=== PATIENT | male | born 1955 | race African-American/Black ===

== ENCOUNTER 2016-03-15 15:09 | Inpatient (IN) | payer MEDICAID ==
[~2016-03-15] VITALS: Ht 167.6 cm; Wt 81.8 kg
[2016-03-15] VITALS (8 sets, daily range): BP systolic 81–136; BP diastolic 50–90; PULSE 66–87; RESP 16–20; TEMP 97.3–98.2; O2SAT 89–98
[~2016-03-15 15:09] MED LIST: CLON0.2T PO; DILT30 PO; KETO2%T TOP; LISI-363 PO
--- NOTE | 2016-03-15 15:36 | PD ---
HPI Chief Complaint: Seizure Time Seen by Provider: 15:30 Travel History International Travel<30 days: No Contact w/Intl Traveler<30days: No Traveled to known affect area: No History of Present Illness HPI 60-year-old male came to the emergency room with history of seizure and postictal spotted by the passerby. He was laying on the ground poorly responsive when EMS arrived. He was incontinent and tongue bite. Currently he continues to be postictal and confused. He was brought in boarded and collared. He looked intoxicated and said he had a bottle of wine today along with cocaine. [facility] Past Medical History Narrative Medical List of his past medical history is reviewed from the nursing note. Hypertension: Yes Social History Alcohol Use: No Tobacco Use: Yes (CIGARETTES, 1 PPD X 30 X YEARS) Substance Use: No Allergies-Medications (Allergen,Severity, Reaction): Coded Allergies: No Known Allergies (Unverified , 12/13/11) Comments No known drug allergies. Reported Meds & Prescriptions Reported Meds & Active Scripts Active Reported Aspirin 81 Mg Tabdr 81 Mg PO DAILY Norvasc (Amlodipine Besylate) 5 Mg Tab 5 Mg PO BID Narrative Medication List of his past medical history as reviewed from the nursing note. Review of Systems Except as stated in HPI: all other systems reviewed are Neg Physical Exam Narrative GENERAL: Confused, boarded and collared, moderate distress SKIN: Warm and dry. Abrasion on the scalp in the occipital area HEAD: Atraumatic. Normocephalic. EYES: Pupils equal and round. No scleral icterus. No injection or drainage. ENT: No nasal bleeding or discharge. Mucous membranes pink and moist. NECK: Trachea midline. No JVD. CARDIOVASCULAR: Regular rate and rhythm. No murmur appreciated. RESPIRATORY: No accessory muscle use. Clear to auscultation. Breath sounds equal bilaterally. GASTROINTESTINAL: Abdomen soft, non-tender, nondistended. Hepatic and splenic margins not palpable. MUSCULOSKELETAL: No obvious deformities. No clubbing. No cyanosis. No edema. NEUROLOGICAL: Awake and alert. No obvious cranial nerve deficits. Motor grossly within normal limits. Slurred speech. PSYCHIATRIC: Appropriate mood and affect; insight and judgment normal. Data Data Last Documented VS Vital Signs Date Time Temp Pulse Resp B/P Pulse Ox O2 Delivery O2 Flow Rate FiO2 03/15/16 15:55 86 18 116/70 93 Nasal Cannula 2 03/15/16 15:35 97.3 Orders Complete Blood Count With Diff (03/15/16 15:40) Basic Metabolic Panel (Bmp) (03/15/16 15:40) Alcohol (Ethanol) (03/15/16 15:40) Drug Screen, Random Urine (03/15/16 15:40) Ct Brain W/O Iv Contrast(Rout) (03/15/16 ) Blood Glucose (03/15/16 15:40) Ecg Monitoring (03/15/16 15:40) Iv Access Insert/Monitor (03/15/16 15:40) Oximetry (03/15/16 15:40) Sodium Chloride 0.9% Flush (Ns Flush) (03/15/16 15:45) Thiamine Inj (Thiamine Inj) (03/15/16 15:45) Tetanus/Diphtheria Tox Adult (Tetanus/Di (03/15/16 15:45) Bacitracin Oint (Baciguent Oint) (03/15/16 15:45) Acetaminophen (Tylenol) (03/15/16 15:45) Mri Brain W&W/O Contrast (03/15/16 ) Levetiracetam Inj (Keppra Inj) (03/15/16 16:45) Consult Neurosurgery (03/15/16 ) Admit Order (Ed Use Only) (03/15/16 16:48) Electrocardiogram (03/15/16 15:48) Labs Laboratory Tests Test 03/15/16 03/15/16 16:15 16:25 White Blood Count 7.4 TH/MM3 Red Blood Count 4.21 MIL/MM3 Hemoglobin 13.7 GM/DL Hematocrit 40.0 % Mean Corpuscular Volume 95.1 FL Mean Corpuscular Hemoglobin 32.7 PG Mean Corpuscular Hemoglobin 34.4 % Concent Red Cell Distribution Width 12.8 % Platelet Count 272 TH/MM3 Mean Platelet Volume 7.9 FL Neutrophils (%) (Auto) 81.0 % Lymphocytes (%) (Auto) 13.0 % Monocytes (%) (Auto) 5.0 % Eosinophils (%) (Auto) 0.6 % Basophils (%) (Auto) 0.4 % Neutrophils # (Auto) 6.0 TH/MM3 Lymphocytes # (Auto) 1.0 TH/MM3 Monocytes # (Auto) 0.4 TH/MM3 Eosinophils # (Auto) 0.0 TH/MM3 Basophils # (Auto) 0.0 TH/MM3 CBC Comment DIFF FINAL Differential Comment Sodium Level 139 MEQ/L Potassium Level 3.2 MEQ/L Chloride Level 103 MEQ/L Carbon Dioxide Level 20.4 MEQ/L Anion Gap 16 MEQ/L Blood Urea Nitrogen 14 MG/DL Creatinine 1.76 MG/DL Estimat Glomerular Filtration 48 ML/MIN Rate Random Glucose 107 MG/DL Calcium Level 8.7 MG/DL Ethyl Alcohol Level 23 MG/DL Urine Opiates Screen NEG Urine Barbiturates Screen NEG Urine Amphetamines Screen NEG Urine Benzodiazepines Screen NEG Urine Cocaine Screen POS Urine Cannabinoids Screen NEG MDM Medical Decision Making Medical Screen Exam Complete: Yes Emergency Medical Condition: Yes Medical Record Reviewed: Yes Interpretation(s) Twelve-lead EKG was reviewed by me. Normal sinus rhythm, left axis deviation, nonspecific ST-T wave changes. Heart rate of 85 bpm. Differential Diagnosis Intracranial bleed, intracranial mass, new onset seizure Narrative Course 4:46 PM I discussed the case with Dr. Cuevas regarding the CT scan abnormality. He will consult on the patient. He agreed with the 1 g of Keppra for seizure precaution. I've ordered an MRI with contrast for better definition of the mass. Awaiting for the hospitalist to call back for admission. Critical Care Narrative Aggregate critical care time was 30 minutes. Time to perform other separately billable procedures was not included in the critical care time. My time did not include minutes spent treating any other patients simultaneously or on activities that did not directly contribute to the patient's treatment. The services I provided to this patient were to treat and/or prevent clinically significant deterioration that could result in: Intracranial mass, new onset seizure I provided critical care services requiring my management, as noted below: Chart data review, documentation time, medication orders and management, vital sign assessments/reviewing monitor data, ordering and reviewing lab tests, ordering and interpreting/reviewing x-rays and diagnostic studies, care of the patient and discussion of the patient with the admitting physicians. Procedures EKG Prior to Arrival: No Physician Communication Physician Communication Dr. Cuevas Diagnosis Primary Impression: New onset seizure Additional Impression: Intracranial mass Admitting Information Admitting Physician Requests: Admit Erik Patterson MD Mar 15, 2016 15:36
[2016-03-15] MEDS ORDERED: AMLO5 PO (15:37)
[2016-03-15] MEDS ORDERED: ASPI1TAB69 PO (15:37)
[2016-03-15] MEDS ORDERED: ACETAMINOPHEN 500 MG CPLT PO ONE (15:45)
[2016-03-15] MEDS ORDERED: SODIUM CHLORIDE 0.9% FLUSH 5 ML FLUSH IVF PRN (15:45)
[2016-03-15] MEDS ORDERED: THIAMINE HCL 200 MG/2 ML VIAL IM ONE (15:45)
[2016-03-15] MEDS ORDERED: BACITRACIN TOP OINT 15 GM TUBE TOP ONE (15:45)
[2016-03-15] MEDS ORDERED: TETANUS/DIPHTHERIA TOXOID ADULT 0.5 ML VIAL IM ONE (15:45)
--- NOTE | 2016-03-15 16:28 | RADRPT ---
EXAM DATE/TIME: 03/15/2016 16:00 [facility] COMPARISON: No previous studies available for comparison. INDICATIONS : Trauma; fall, seizure activity. RADIATION DOSE: 56.35 CTDIvol (mGy) MEDICAL HISTORY : Hypertension. Drug abuse. SURGICAL HISTORY : None. ENCOUNTER: Initial ACUITY: 1 day PAIN SCALE: 0/10 LOCATION: cranial TECHNIQUE: Multiple contiguous axial images were obtained of the head. Using automated exposure control and adj ustment of the mA and/or kV according to patient size, radiation dose was kept as low as reasonably a chievable to obtain optimal diagnostic quality images. FINDINGS: CEREBRUM: There is a 1.8 cm high density mass identified in the left frontal lobe adjacent to the falx. This is seen best on series 2 image 16 through 19. The mass appears to be intra-axial and associated with ad jacent peritumoral edema within the white matter. Additional edema is identified within the white mat ter of the right frontal lobe. No evidence of midline shift or significant mass effect. The adjacent calvarium is unremarkable. The lateral ventricles are normal. POSTERIOR FOSSA: The cerebellum and brainstem are intact. The 4th ventricle is midline. The cerebellopontine angle i s unremarkable. EXTRACRANIAL: The visualized portion of the orbits is intact. There is complete opacification of the left maxillary sinus and mucoperiosteal thickening present within the ethmoid air cells. SKULL: The calvaria is intact. No evidence of skull fracture. CONCLUSION: This is an abnormal exam with a 1.8 cm high density mass identified within the left frontal lobe polly cent to the falx which appears to be intra-axial and associated with adjacent peritumoral edema. Mario mmend further evaluation with contrast-enhanced MRI of the brain when clinically able.. Analilia Delgado MD on March 15, 2016 at 16:22 Board Certified Radiologist. This report was verified electronically.
[2016-03-15 16:40] LABS: BASOPHIL % 0.4 % (0.0-2.0); EOSINOPHIL % 0.6 % (0.0-4.0); HEMO FLAGS DIFF FINAL; MEAN CELL VOLUME 95.1 FL (80.0-100.0); MEAN CORPUSCULAR HEMOGLOBIN 32.7 PG (27.0-34.0); MEAN CORPUSCULAR HGB CONC 34.4 % (32.0-36.0); PLATELET COUNT 272 TH/MM3 (150-450); RED BLOOD COUNT 4.21 MIL/MM3 (4.50-5.90); RED CELL DISTRIBUTION WIDTH 12.8 % (11.6-17.2); WHITE BLOOD COUNT 7.4 TH/MM3 (4.0-11.0)
[2016-03-15] MEDS ORDERED: levETIRAcetam INJ 1,000 MG in SODIUM CHLORIDE 0.9% INJ 100 ML IV ONE (16:45)
[2016-03-15 16:52] LABS: AMPHETAMINE, URINE NEG (NEG); BARBITURATES, URINE NEG (NEG); COCAINE, URINE POS (NEG)
[2016-03-15] MEDS ORDERED: SODIUM CHLORIDE 0.9% FLUSH 5 ML FLUSH FLUSH PRN (17:00)
[2016-03-15] MEDS ORDERED: MAGNESIUM HYDROXIDE SUSP 30 ML CUP PO PRN (17:00)
[2016-03-15] MEDS ORDERED: ACETAMINOPHEN 325 MG TAB PO PRN (17:00)
[2016-03-15] MEDS ORDERED: NALOXONE HCL 0.4 MG/ML AMP IV PRN (17:00)
[2016-03-15] MEDS ORDERED: BISACODYL 10 MG SUPP PR PRN (17:00)
[2016-03-15 17:01] LABS: BICARBONATE 20.4 MEQ/L (21.0-32.0); POTASSIUM 3.2 MEQ/L (3.5-5.1)
--- NOTE | 2016-03-15 17:15 | HHI.HP ---
[facility] Admission Diagnosis new onset seizure, cocaine abuse, intracranial mass Diagnoses: Chief Complaint: Seizure Travel History International Travel<30 Days: No Contact w/Intl Traveler <30 Da: No Traveled to Known Affected Are: No History of Present Illness Patient is a 60-year-old who came in to the hospital spotted by a passerby post ictal following a seizure. As per report, he was laying on the ground unresponsive when EMS arrived. He was incontinent and with tongue bite. In the ED he is post ictal and confused. He was given Keppra 1000mg. Patient seen. States he is doing a lot better. Alert and oriented 2-3. States that he's been drinking alcohol today and smoking crack. As per patient, he smoked a lot of crack and he was walking for 3 miles, and ended up at Hospital. CT imaging showed this an abnormal exam with a 1.8 cm high density mass identified within the left frontal lobe adjacent to the falx which appears to be intra-axial and associated with adjacent peritumoral edema. Recommend further evaluation with contrast enhanced MRI of the brain when clinically able. Neurosurgery has been consulted for input. Review of labs CBC unremarkable. BMP low potassium at 3.2, iron gap 16, carbon dioxide 20.4, elevated creatinine 1.76, EGFR 48, 107 random glucose. U tox positive for cocaine, ethyl alcohol 23. Discuss plan with patient and . states that this is a wakeup call for the who has been using crack and drinking alcohol. Results of the imaging studies have been explained and discussed. Patient denies pain and discomfort. Denies SOB/ dyspnea. Denies chestpain, palpitations, headaches, dizziness. Denies fevers, chills, n/v/d. Denies change in vision or focal weakness. Review of Systems Other Negative except for what is noted on history of present illness. Past Family Social History Past Medical History HTN Past Surgical History Hair transplant Reported Medications Norvasc ASA Allergies: Coded Allergies: No Known Allergies (Unverified , 12/13/11) Active Ordered Medications Current Medications Medications (Trade) Dose Ordered Sig/Aleta Route Start Time Stop Time Status Last Admin IV Flush 2 ml 2 ml UNSCH PRN IVF 03/15/16 15:45 (NS 1000 ml Inj) 1,000 ml @ 100 mls/hr Q10H IV 03/15/16 16:54 UNV (NS Flush) 2 ml UNSCH PRN FLUSH 03/15/16 17:00 UNV (NS Flush) 2 ml BID FLUSH 03/15/16 21:00 UNV (Tylenol) 650 mg Q4H PRN PO 03/15/16 17:00 UNV (Zofran Inj) 4 mg Q6H PRN IVP 03/15/16 17:00 UNV (Dulcolax Supp) 10 mg DAILY PRN NV 03/15/16 17:00 UNV (Milk Of Magnesia Liq) 30 ml Q12H PRN PO 03/15/16 17:00 UNV (Narcan Inj) 0.4 mg UNSCH PRN IV 03/15/16 17:00 UNV Family History Family history of hypertension Social History . Lives with . Alcohol use almost every day wine and beer " alot" Current smoker 1 pack per day Illicit drug use crack - states he smokes "a lot" almost every day Physical Exam Vital Signs Vital Signs Date Time Temp Pulse Resp B/P Pulse Ox O2 Delivery O2 Flow Rate FiO2 03/15/16 15:55 86 18 116/70 93 Nasal Cannula 2 03/15/16 15:45 89 Room Air 03/15/16 15:35 84 18 89 Room Air 03/15/16 15:35 97.3 83 18 81/50 93 Nasal Cannula 2 03/15/16 15:28 82 18 87/53 89 Physical Exam GENERAL: This is a well-nourished, well-developed patient, in no apparent distress. SKIN: No rashes, ecchymoses or lesions. Cool and dry. HEAD: Atraumatic. Normocephalic. No temporal or scalp tenderness. EYES: Pupils equal round and reactive. Extraocular motions intact. No scleral icterus. No injection or drainage. ENT: Nose without bleeding. Throat without erythema. Uvula midline. Tongue with bite suki. Airway patent. NECK: Trachea midline. No JVD or lymphadenopathy. Supple, nontender, no meningeal signs. CARDIOVASCULAR: Regular rate and rhythm without murmurs, gallops, or rubs. RESPIRATORY: Clear to auscultation. Breath sounds equal bilaterally. No wheezes , rales, or rhonchi. GASTROINTESTINAL: Abdomen soft, non-tender, nondistended. No hepato-splenomegaly , or palpable masses. No guarding. MUSCULOSKELETAL: Extremities without clubbing, cyanosis, or edema. No joint tenderness, effusion, or edema noted. NEUROLOGICAL: Awake and alert. Oriented x2-3. Cranial nerves II through XII intact. Motor and sensory grossly within normal limits. Five out of 5 muscle strength in all muscle groups. Normal speech. Laboratory Laboratory Tests Test 03/15/16 03/15/16 16:15 16:25 White Blood Count 7.4 Red Blood Count 4.21 Hemoglobin 13.7 Hematocrit 40.0 Mean Corpuscular Volume 95.1 Mean Corpuscular Hemoglobin 32.7 Mean Corpuscular Hemoglobin 34.4 Concent Red Cell Distribution Width 12.8 Platelet Count 272 Mean Platelet Volume 7.9 Neutrophils (%) (Auto) 81.0 Lymphocytes (%) (Auto) 13.0 Monocytes (%) (Auto) 5.0 Eosinophils (%) (Auto) 0.6 Basophils (%) (Auto) 0.4 Neutrophils # (Auto) 6.0 Lymphocytes # (Auto) 1.0 Monocytes # (Auto) 0.4 Eosinophils # (Auto) 0.0 Basophils # (Auto) 0.0 CBC Comment DIFF FINAL Differential Comment Sodium Level 139 Potassium Level 3.2 Chloride Level 103 Carbon Dioxide Level 20.4 Anion Gap 16 Blood Urea Nitrogen 14 Creatinine 1.76 Estimat Glomerular Filtration 48 Rate Random Glucose 107 Calcium Level 8.7 Ethyl Alcohol Level 23 Urine Opiates Screen NEG Urine Barbiturates Screen NEG Urine Amphetamines Screen NEG Urine Benzodiazepines Screen NEG Urine Cocaine Screen POS Urine Cannabinoids Screen NEG Result Diagram: 03/15/16 1615 03/15/16 1615 Assessment and Plan Problem List: (1) Intracranial mass ICD Code: R90.0 Status: Acute (2) New onset seizure ICD Code: R56.9 Status: Acute (3) HTN (hypertension) ICD Code: I10 Status: Chronic Assessment and Plan Patient is a 60-year-old who came in to the hospital spotted by a passerby post- ictal following a seizure. As per report, he was laying on the ground unresponsive when EMS arrived. He was incontinent and with tongue bite. Admitted inpatient for further evaluation. Seizure, new onset - Keppra was given 1000 mg in the ED. - Start Keppra 500 mg IV twice a day. Will switch to PO likely tomorrow 2016. - Ativan when necessary - Neuro checks every 4 hours - Seizure precaution Left Frontal mass - Decadron 4 mg every 6 hours - Neurosurgery consulted. Discussed with Dr. Cuevas. - Neurology consulted due to seizure activity. - MRI brain ordered. Discussed with Dr. Cuevas regarding CT Chest/Abd/pelvis. We will hold on CT studies due to [place]. Acute kidney injury - possibly prerenal secondary secondary to EtOH use, and crack cocaine - Creatinine 1.76. We do not have a baseline. - IV fluid hydration - Monitor BMP - Avoid nephrotoxins HTN - hold off on home medication Norvasc, Patient's BP on the lower side at this time. - Monitor BP trend. Will keep BP < 160/90. - If necessary, we will start Amlodipine 5mg Qday. Tobacco use - counseled EtOH - counseled. CIWA protocol Illicit drug use crack cocaine - counseled Full code. DVT prop SCDs GI prop pantoprazole Written by Narcisa Jordan, acting as scribe for Dr. Galeas on 03/15/16 at 17:20. The documentation accurately reflects the work performed [id number] by me on at 17:20. Code Status Full Code Discussed Condition With Patient, , nursing, Dr. Cuevas and ED attending Physician Certification 2 Midnight Certification Type: Admission for Inpatient Services Order for Inpatient Services The services are ordered in accordance with Medicare regulations or non- Medicare payer requirements, as applicable. In the case of services not specified as inpatient-only, they are appropriately provided as inpatient services in accordance with the 2-midnight benchmark. Estimated LOS (days): 2 days is the estimated time the patient will need to remain in the hospital, assuming treatment plan goals are met and no additional complications. Post-Hospital Plan: Not yet determined Narcisa Sheridan Mar 15, 2016 17:15 Coy Galeas DO Mar 15, 2016 23:19
--- NOTE | 2016-03-15 17:29 | PD.CONS ---
(Abdias Cuevas MD) HPI Consult Requested By Primary Care Physician Unknown (Abdias Cuevas MD) Service [facility] History of Present Illness Mr. Stock is a 60-year-old male who was taken to [facility] via EMS after a witnessed seizures. He had positive incontinent and with tongue biting according to report. He is post-ictally confused. He is also reported to be intoxicated, abusing etoh and smoking crack. A CT Brain was obtained which showed a 1.8 cm high density mass identified within the left frontal lobe adjacent to the falx. A neurosurgical evaluation was requested for evaluation of brain mass. (Sharmila Al) Review of Systems ROS not possible due to intoxication/sedation ROS Limitations: Intoxication, Altered Mental Status (Abdias Cuevas MD) Past Family Social History Allergies: Coded Allergies: No Known Allergies (Unverified , 12/13/11) Past Medical History Hypertension Past Surgical History no previous major surgery reported Reported Medications reviewed per EMR Family History Family history of hypertension Social History etoh abuse with daily beers and wine 1 pack per day tobacco reports to smoke crack (Sharmila Al) Physical Exam Vital Signs Vital Signs Date Time Temp Pulse Resp B/P Pulse Ox O2 Delivery O2 Flow Rate FiO2 03/15/16 15:55 86 18 116/70 93 Nasal Cannula 2 03/15/16 15:45 89 Room Air 03/15/16 15:35 84 18 89 Room Air 03/15/16 15:35 97.3 83 18 81/50 93 Nasal Cannula 2 03/15/16 15:28 82 18 87/53 89 Physical Exam The patient very lethargic but arousable. Appears intoxicated. Oriented to self and to place. Cranial nerve examination demonstrates the pupils to be equal, round, and reactive to light. Extra-ocular movements are intact with normal convergence. Facial motor function appears normal and symmetrical. Face sensation, hearing, visual gaming, and olfaction can not be assessed properly due to the patients condition. The patient has an intact corneal reflex and a gag reflex. Sternocleidomastoid and trapezius have normal and symmetrical strength. Other cranial nerves are intact. Neck is soft and supple. Cervical spine has a normal range of motion of the cervical spine without pain. There is no tenderness to palpation to the spinous processes or paraspinal muscles. Muscle testing reveals normal bulk and tone overall without rigidity, spasticity , fasciculations, or atrophy. Muscle strength is 5/5 in all muscle groups of both upper and lower extremities. Deep tendon reflexes are 1+ and symmetrical in the biceps, triceps, and brachioradialis, bilaterally, in the upper extremities. In the lower extremities , the patellar and Achilles are 1+, bilaterally. There is a bilateral plantar flexion response. Hoffmanns sign is negative. There is no clonus or other abnormal reflexes noted. Cerebellar examination is limited due to the patient condition, but no obvious deficits are noted. Laboratory Laboratory Tests Test 03/15/16 03/15/16 16:15 16:25 White Blood Count 7.4 Red Blood Count 4.21 Hemoglobin 13.7 Hematocrit 40.0 Mean Corpuscular Volume 95.1 Mean Corpuscular Hemoglobin 32.7 Mean Corpuscular Hemoglobin 34.4 Concent Red Cell Distribution Width 12.8 Platelet Count 272 Mean Platelet Volume 7.9 Neutrophils (%) (Auto) 81.0 Lymphocytes (%) (Auto) 13.0 Monocytes (%) (Auto) 5.0 Eosinophils (%) (Auto) 0.6 Basophils (%) (Auto) 0.4 Neutrophils # (Auto) 6.0 Lymphocytes # (Auto) 1.0 Monocytes # (Auto) 0.4 Eosinophils # (Auto) 0.0 Basophils # (Auto) 0.0 CBC Comment DIFF FINAL Differential Comment Sodium Level 139 Potassium Level 3.2 Chloride Level 103 Carbon Dioxide Level 20.4 Anion Gap 16 Blood Urea Nitrogen 14 Creatinine 1.76 Estimat Glomerular Filtration 48 Rate Random Glucose 107 Calcium Level 8.7 Ethyl Alcohol Level 23 Urine Opiates Screen NEG Urine Barbiturates Screen NEG Urine Amphetamines Screen NEG Urine Benzodiazepines Screen NEG Urine Cocaine Screen POS Urine Cannabinoids Screen NEG (Abdias Cuevas MD) Result Diagram: 03/15/16 1615 03/15/16 1615 Imaging Last Impressions Head CT 03/15/16 0000 Signed Impressions: Service Date/Time: Tuesday, March 15, 2016 16:00 - CONCLUSION: This is an abnormal exam with a 1.8 cm high density mass identified within the left frontal lobe adjacent to the falx which appears to be intra-axial and associated with adjacent peritumoral edema. Recommend further evaluation with contrast- enhanced MRI of the brain when clinically able.. Analilia Delgado MD (Abdias Cuevas MD) Attending Statement Neuro. I have reviewed his clinical and radiological findings. Start neuro checks in a serial fashion. Recommend MRI of the brain to rule out the possible meningioma Respiratory. Aggressive pulmonary toilette, nasotracheal suction, and breathing treatments with nebulizers. PT and OT evaluation Nutrition. NPO Alcohol abuse. Unable to genetic counsellor at this time. Thiamine, folic acid, multivitamins. Benzodiazepines as needed Renal. Severe renal insufficiency. IV hydration. Monitor closely urine output , BUN and creatinine Endocrine. Monitor serial Acu checks and SSI as needed in detail ID monitor for signs of infection Protonix for stress ulcer prophylaxis Ralph hosfadi and SCD's for DVT prophylaxis (Abdias Cuevas MD) Abdias Cuevas MD Mar 15, 2016 17:29 Sharmila Al Mar 16, 2016 17:14
[2016-03-15] MEDS ORDERED: GADODIAMIDE PF 287 MG/ML 20 ML VIAL (for RAD MRI) IV ONE (17:43)
[2016-03-15] MEDS ORDERED: LORazepam 2 MG TAB PO PRN (17:45)
[2016-03-15] MEDS ORDERED: LORazepam 2 MG/ML VIAL IV PUSH PRN ×5 (17:45)
[2016-03-15] MEDS ORDERED: LORazepam 1 MG TAB PO PRN (17:45)
[2016-03-15] MEDS ORDERED: FLUMAZENIL 1 MG/10 ML VIAL IV PUSH PRN (17:45)
[2016-03-15] MEDS ORDERED: ONDANSETRON HCL 4 MG/2 ML VIAL IVP PRN (18:00)
--- NOTE | 2016-03-15 18:18 | RADRPT ---
EXAM DATE/TIME: 03/15/2016 17:32 [facility] COMPARISON: CT BRAIN W/O CONTRAST, March 15, 2016, 16:00. INDICATIONS : Seizures. Abnormal CT study of the brain demonstrating a left frontal mass and edema. CONTRAST: 16 cc Omniscan (gadodiamide) IV MEDICAL HISTORY : Hypertension. SURGICAL HISTORY : Hand. ENCOUNTER: Initial ACUITY: 1 day PAIN SCORE: 0/10 LOCATION: head. TECHNIQUE: Multiplanar, multisequence MRI of the brain was performed both prior to and following the administrat ion of paramagnetic contrast. FINDINGS: CEREBRUM: The ventricles are normal for age. There is a 1.8 x 1.8 x 2.2 cm mass along the anterior upper left frontal lobe which enhances intensely and homogeneously and is associated with the adjacent meninges. The mass appears extra axial with mass effect on the frontal lobe and surrounding edema extending in the white matter. No evidence of midline shift, hemorrhage or acute infarction. No extraaxial fluid collections are seen. The pituitary gland and suprasellar cistern are normal in configuration. WHITE MATTER: On the flair weighted image there is extensive increased signal in the periventricular white matter a nd centrum semiovale characteristic of chronic small vessel ischemic change. POSTERIOR FOSSA: The cerebellum and brainstem are intact. The 4th ventricle is midline. The cerebellopontine angle is unremarkable. The cerebellar tonsils are normal in position. DIFFUSION IMAGING: No focal areas of restricted diffusion are seen. No evidence of acute infarction. EXTRACRANIAL: The visualized portions of the orbits are unremarkable. The left maxillary sinus is completely opacif ied. There is mucosal thickening in the right maxillary sinus, ethmoidal air cells and sphenoid sinus . There is mild mucosal thickening in the frontal sinuses. POST-CONTRAST: No abnormal areas of parenchymal or dural enhancement. No evidence of blood-brain barrier breakdown. CONCLUSION: 1. Left frontal lobe mass which appears extra axial with mass effect on the frontal lobe with surroun ding edema. This is most characteristic of a meningioma. 2. Atrophy and chronic small vessel ischemic change. 3. Sinusitis. Benjamin Alston MD on March 15, 2016 at 18:09 Board Certified Radiologist. This report was verified electronically.
[2016-03-15] MEDS: SODIUM CHLOR 0.9% 1000 ML INJ 1,000 ML IV SCH (20:56)
[2016-03-15] MEDS: SODIUM CHLORIDE 0.9% FLUSH 5 ML FLUSH FLUSH SCH (20:56)
[2016-03-15] MEDS: DEXAMETHASONE SOD PHOS 4 MG/ML VIAL IV PUSH SCH ×2 (20:56→23:59)
[2016-03-15] MEDS: levETIRAcetam INJ 500 MG in SODIUM CHLORIDE 0.9% INJ 100 ML IV SCH (22:58)
[2016-03-16 00:02] VITALS: BP 140/82; PULSE 65; RESP 20; TEMP 98.2; O2SAT 98
[2016-03-16 04:44] VITALS: BP 131/84; PULSE 88; RESP 22; TEMP 98.1; O2SAT 98
[2016-03-16] MEDS: SODIUM CHLOR 0.9% 1000 ML INJ 1,000 ML IV SCH ×3 (04:45→23:48)
[2016-03-16] MEDS: DEXAMETHASONE SOD PHOS 4 MG/ML VIAL IV PUSH SCH ×4 (06:14→23:48)
[2016-03-16 07:18] LABS: BASOPHIL % 0.1 % (0.0-2.0); HEMO FLAGS DIFF FINAL; LYMPH % 11.2 % (9.0-44.0); LYMPHOCYTE # 0.9 TH/MM3 (1.0-4.8); MEAN CELL VOLUME 93.8 FL (80.0-100.0); MEAN CORPUSCULAR HEMOGLOBIN 32.6 PG (27.0-34.0); MEAN CORPUSCULAR HGB CONC 34.7 % (32.0-36.0); MONO % 1.7 % (0.0-8.0); PLATELET COUNT 256 TH/MM3 (150-450); RED BLOOD COUNT 4.37 MIL/MM3 (4.50-5.90); RED CELL DISTRIBUTION WIDTH 12.7 % (11.6-17.2)
[2016-03-16 07:39] LABS: BICARBONATE 27.2 MEQ/L (21.0-32.0); POTASSIUM 3.2 MEQ/L (3.5-5.1)
[2016-03-16 07:50] VITALS: BP 135/94; PULSE 76; RESP 18; TEMP 98; O2SAT 97
[2016-03-16] MEDS: SODIUM CHLORIDE 0.9% FLUSH 5 ML FLUSH FLUSH SCH ×2 (08:26→21:10)
[2016-03-16] MEDS: PANTOPRAZOLE SOD 40 MG DELAYED RELEASE TAB PO SCH (08:26)
[2016-03-16] MEDS: FOLIC ACID 1 MG TAB PO SCH (08:26)
[2016-03-16] MEDS: levETIRAcetam INJ 500 MG in SODIUM CHLORIDE 0.9% INJ 100 ML IV SCH (09:51)
[2016-03-16 11:28] VITALS: BP 134/82; PULSE 78; RESP 19; TEMP 98.2; O2SAT 96
--- NOTE | 2016-03-16 14:13 | EKG ---
Date Performed: 03/15/2016 Time Performed: 15:48:35 PTAGE: 60 years EKG: Sinus rhythm LEFT VENTRICULAR HYPERTROPHY AND ST-T CHANGE ABNORMAL ECG NO PREVIOUS TRACING DOCTOR: Brayan Rae Interpretating Date/Time 03/16/2016 14:05:07
--- NOTE | 2016-03-16 16:41 | MB ---
cc: ROCHELLE AGUIAR M.D. DATE OF CONSULTATION: 03/16/2016 REASON FOR CONSULTATION: New onset seizure. HISTORY OF PRESENT ILLNESS: The patient is a 60-year-old with history of apparent new onset seizures. The patient does not remember about it. He remembers walking and the next thing he remembers is being in the ambulance. Apparently a passerby found him unresponsive or may have noticed a seizure. He was post ictal. He was incontinent and also bit his tongue. He was given Keppra 1 gram which was also combined with some lorazepam. The MRI and CT brain shows what appears to be a left frontal meningioma with some mass effect. I did review the studies. The patient has been using crack cocaine and drinking alcohol. He admits to a history of some apparent blood pressure but he is not taking care of himself. NEUROLOGICAL EXAMINATION: The neurological exam was essentially benign. He was alert pleasant, oriented. At the time of my visit about 45 minutes ago he was completely oriented and appropriate. His reflexes were trace at the elbows, absent at the knees and ankles and plantar responses were flexor. LABORATORY DATA: CBC is essentially normal. Sodium 139, potassium 3.2, BUN 14, creatinine 1.76, glucose 107, calcium 8.7. Urine cocaine screen positive. Alcohol level 23. ASSESSMENT 1. New onset seizures. Left frontal meningioma with some mass effect. 2. Drug abuse. The patient has been seen by neurosurgery to direct the treatment of the meningioma which is probably excision, and I have discussed this briefly with the patient and I believe his at bedside. He was counseled about drug abuse. I will follow the neurological course. Thank you for asking us to assist in his care. Rochelle Aguiar MD [facility] /2:46 PM /4:35 PM
--- NOTE | 2016-03-16 17:15 | HHI.PR ---
Subjective Remarks Follow up for new onset seizure, alcohol/polysubstance abuse, frontal lobe meningioma. Mr. Stock is doing much better today. at bedside. No CP, SOB, fever, chills. He does report slight dizziness on moving head too fast. Objective Vitals Vital Signs Date Time Temp Pulse Resp B/P Pulse Ox O2 Delivery O2 Flow Rate FiO2 03/16/16 15:55 03/16/16 11:28 98.2 78 19 134/82 96 03/16/16 07:50 98.0 76 18 135/94 97 03/16/16 04:44 98.1 88 22 131/84 98 03/16/16 00:02 98.2 65 20 140/82 98 03/15/16 22:46 98.2 66 20 132/76 98 03/15/16 21:00 80 16 130/75 96 Nasal Cannula 03/15/16 18:34 96 21 03/15/16 18:16 87 18 136/90 95 Nasal Cannula 2 I/O 03/15/16 03/15/16 03/15/16 03/16/16 03/16/16 03/16/16 07:00 15:00 23:00 07:00 15:00 23:00 Intake Total 1002 ml Output Total 200 ml Balance 802 ml Intake IV Total 1002 ml Output Urine Total 200 ml Result Diagram: 03/16/16 0636 03/16/16 0636 Imaging Last Impressions Head CT 03/15/16 0000 Signed Impressions: Service Date/Time: Tuesday, March 15, 2016 16:00 - CONCLUSION: This is an abnormal exam with a 1.8 cm high density mass identified within the left frontal lobe adjacent to the falx which appears to be intra-axial and associated with adjacent peritumoral edema. Recommend further evaluation with contrast- enhanced MRI of the brain when clinically able.. Analilia Delgado MD Brain MRI 03/15/16 0000 Signed Impressions: Service Date/Time: Tuesday, March 15, 2016 17:32 - CONCLUSION: 1. Left frontal lobe mass which appears extra axial with mass effect on the frontal lobe with surrounding edema. This is most characteristic of a meningioma. 2. Atrophy and chronic small vessel ischemic change. 3. Sinusitis. Benjamin Alston MD Objective Remarks GENERAL: AOX3, NAD. SKIN: Warm and dry. HEAD: Normocephalic. EYES: No scleral icterus. No injection or drainage. NECK: Supple, trachea midline. No JVD or lymphadenopathy. CARDIOVASCULAR: Regular rate and rhythm without murmurs, gallops, or rubs. RESPIRATORY: Breath sounds equal bilaterally. No accessory muscle use. GASTROINTESTINAL: Abdomen soft, non-tender, nondistended. MUSCULOSKELETAL: No cyanosis, or edema. BACK: Nontender without obvious deformity. No CVA tenderness. Procedures None. A/P Problem List: (1) Intracranial mass ICD Code: R90.0 Status: Acute (2) New onset seizure ICD Code: R56.9 Status: Acute (3) HTN (hypertension) ICD Code: I10 Status: Chronic Assessment and Plan Patient is a 60-year-old who came in to the hospital spotted by a passerby post- ictal following a seizure. As per report, he was laying on the ground unresponsive when EMS arrived. He was incontinent and with tongue bite. Admitted inpatient for further evaluation. Seizure, new onset - Keppra was given 1000 mg in the ED. - Keppra 500 mg IV twice a day. Will switch to PO today. - Ativan when necessary - Neuro checks every 4 hours - Seizure precaution Left Frontal mass - Decadron 4 mg every 6 hours - Neurosurgery and neurology following. - Neurology consulted due to seizure activity. - MRI confirms mass with surrounding edema. This is likely meningioma. Acute kidney injury - possibly prerenal secondary secondary to EtOH use, and crack cocaine - Creatinine 1.76 ==> 1.32 - IV fluid hydration - Monitor BMP - Avoid nephrotoxins HTN - hold off on home medication Norvasc. BP 134/82 - Monitor BP trend. Will keep BP < 160/90. - If necessary, we will start Amlodipine 5mg Qday. Tobacco use EtOH - [facility] protocol Illicit drug use crack cocaine - Counselled on 03/15/2016. Full code. SCDs. Coy Galeas DO Mar 16, 2016 17:15
--- NOTE | 2016-03-16 17:17 | HHI.NSPN ---
(Sharmila Al) Note Status Status: Progress Note (Sharmila Al) Interval History Interval History 03/16: more alert, no further seizures. no history of brain tumors. MRI Brain completed consistent for meningioma (Sharmila Al) Labs, Micro, & Vital Signs Results Date Time Temp Pulse Resp B/P Pulse Ox O2 Delivery O2 Flow Rate FiO2 03/16/16 15:55 03/16/16 11:28 98.2 78 19 134/82 96 03/16/16 07:50 98.0 76 18 135/94 97 03/16/16 04:44 98.1 88 22 131/84 98 03/16/16 00:02 98.2 65 20 140/82 98 03/15/16 22:46 98.2 66 20 132/76 98 03/15/16 21:00 80 16 130/75 96 Nasal Cannula 03/15/16 18:34 96 21 03/15/16 18:16 87 18 136/90 95 Nasal Cannula 2 Constitutional Vital Signs Date Time Temp Pulse Resp B/P Pulse Ox O2 Delivery O2 Flow Rate FiO2 03/16/16 15:55 03/16/16 11:28 98.2 78 19 134/82 96 03/16/16 07:50 98.0 76 18 135/94 97 03/16/16 04:44 98.1 88 22 131/84 98 03/16/16 00:02 98.2 65 20 140/82 98 03/15/16 22:46 98.2 66 20 132/76 98 03/15/16 21:00 80 16 130/75 96 Nasal Cannula 03/15/16 18:34 96 21 03/15/16 18:16 87 18 136/90 95 Nasal Cannula 2 (Sharmila Al) Medical Decision Making MDM Remarks 60 year old male with meningioma new onset seizures (Sharmila Al) Plan Plan Remarks MRI Brain reviewed, cont nonsurgical management, and recommend monitoring of meningioma for now dw patient and at bedside, all questions answered he is neurosurgically clear for discharge cont antiepileptics and mgt of seizures per neurology will sign off, call prn (Sharmila Al) Attending Statement The exam, history, and the medical decision-making described in the above note were completed with the assistance of the mid-level provider. I reviewed and agree with the findings presented. I attest that I had a [id number] encounter with the patient on the same day, and personally performed and documented my assessment and findings in the medical record. (Abdias Cuevas MD) Sharmila Al Mar 16, 2016 17:17 Abdias Cuevas MD Mar 16, 2016 19:53
[2016-03-16 21:06] VITALS: BP 155/84; PULSE 73; RESP 21; TEMP 98.2; O2SAT 97
[2016-03-16] MEDS: levETIRAcetam 500 MG TAB PO SCH (21:10)
[2016-03-17 04:41] VITALS: BP 142/87; PULSE 87; RESP 21; TEMP 98.7; O2SAT 98
[2016-03-17] MEDS: DEXAMETHASONE SOD PHOS 4 MG/ML VIAL IV PUSH SCH (05:42)
[2016-03-17 07:31] VITALS: BP 147/101; PULSE 66; RESP 18; TEMP 97.9; O2SAT 98
[2016-03-17] MEDS: FOLIC ACID 1 MG TAB PO SCH (08:24)
[2016-03-17] MEDS: levETIRAcetam 500 MG TAB PO SCH (08:24)
[2016-03-17] MEDS: SODIUM CHLORIDE 0.9% FLUSH 5 ML FLUSH FLUSH SCH (08:24)
[2016-03-17] MEDS: PANTOPRAZOLE SOD 40 MG DELAYED RELEASE TAB PO SCH (08:24)
--- NOTE | 2016-03-17 09:21 | MG ---
cc: JO TOPETE M.D. Lab No: [id number] Date: 03/16/2016 Age: 60 Sex: M Race: DATE OF 1955 AGE [age] years old. EEG Number [id number]. REFERRING PHYSICIAN MD Cosme NOTE Awake/drowsy/asleep study. No hyperventilation due to a mass in the brain with edema, only photic stimulation. MRI shows left frontal mass, appears to be extra-axial with mass effect on the frontal lobe, surrounding edema, meningioma likely. Admitted to the hospital with witnessed seizure, postictal poorly responsive. Drank one bottle of wine and used cocaine prior to being admitted to the hospital per history. He does have a history of crack cocaine use, hypertension, alcohol and tobacco use. MEDICATIONS 1. Folic acid. 2. Protonix. 3. Keppra. DESCRIPTION OF RECORD The patient has quite a bit of eye movement but has some faster frequency waves but seems to have overall normal alpha rhythm of 8 Hz. There is a lot of eye movement artifact, fairly symmetrical otherwise. I do not appreciate any significant attenuation over the left hemisphere compared to the right. Photic stimulation did elicit a driving response. IMPRESSION Basically unremarkable EEG, normal, without any epileptiform features and no significant slowing is seen over the hemisphere with the meningioma, left hemisphere. Clinical correlation. MD KEV Wright/LIBIA /8:55 AM /9:13 AM
--- NOTE | 2016-03-17 09:26 | HHI.PR ---
Subjective Remarks Follow up for alcoholism, meningioma, seizure activity. Mr. Stock is doing well. Denies any acute concerns. Denies any CP, SOB, fever, chills or any further seizure activity. Objective Vitals Vital Signs Date Time Temp Pulse Resp B/P Pulse Ox O2 Delivery O2 Flow Rate FiO2 03/17/16 07:31 97.9 66 18 147/101 98 03/17/16 05:18 21 03/17/16 04:41 98.7 87 21 142/87 98 03/16/16 21:06 98.2 73 21 155/84 97 03/16/16 15:55 03/16/16 11:28 98.2 78 19 134/82 96 I/O 03/16/16 03/16/16 03/16/16 03/17/16 03/17/16 03/17/16 07:00 15:00 23:00 07:00 15:00 23:00 Intake Total 1002 ml Output Total 200 ml Balance 802 ml Intake IV Total 1002 ml Output Urine Total 200 ml # Voids 1 Result Diagram: 03/16/16 0636 03/16/16 0636 Imaging Last Impressions Head CT 03/15/16 0000 Signed Impressions: Service Date/Time: Tuesday, March 15, 2016 16:00 - CONCLUSION: This is an abnormal exam with a 1.8 cm high density mass identified within the left frontal lobe adjacent to the falx which appears to be intra-axial and associated with adjacent peritumoral edema. Recommend further evaluation with contrast- enhanced MRI of the brain when clinically able.. Analilia Delgado MD Brain MRI 03/15/16 0000 Signed Impressions: Service Date/Time: Tuesday, March 15, 2016 17:32 - CONCLUSION: 1. Left frontal lobe mass which appears extra axial with mass effect on the frontal lobe with surrounding edema. This is most characteristic of a meningioma. 2. Atrophy and chronic small vessel ischemic change. 3. Sinusitis. Benjamin Alston MD Objective Remarks GENERAL: AOX3, NAD. SKIN: Warm and dry. HEAD: Normocephalic. EYES: No scleral icterus. No injection or drainage. NECK: Supple, trachea midline. No JVD or lymphadenopathy. CARDIOVASCULAR: Regular rate and rhythm without murmurs, gallops, or rubs. RESPIRATORY: Breath sounds equal bilaterally. No accessory muscle use. GASTROINTESTINAL: Abdomen soft, non-tender, nondistended. MUSCULOSKELETAL: No cyanosis, or edema. BACK: Nontender without obvious deformity. No CVA tenderness. Procedures None. A/P Problem List: (1) Intracranial mass ICD Code: R90.0 Status: Acute (2) New onset seizure ICD Code: R56.9 Status: Acute (3) HTN (hypertension) ICD Code: I10 Status: Chronic Assessment and Plan Patient is a 60-year-old who came in to the hospital spotted by a passerby post- ictal following a seizure. As per report, he was laying on the ground unresponsive when EMS arrived. He was incontinent and with tongue bite. Admitted inpatient for further evaluation. Seizure, new onset - Keppra was given 1000 mg in the ED. - Keppra 500 mg PO BID. - Ativan when necessary - Neuro checks every 4 hours - Seizure precaution Left Frontal mass - Decadron 4 mg every 6 hours - Neurosurgery and neurology following. - Neurology consulted due to seizure activity. - MRI confirms mass with surrounding edema. This is likely meningioma. - Discussed with Dr. Cuevas today (03/17/2016) who recommended no surgical intervention. Dr. Cuevas recommended to stop dexamethasone as well and okay with discharging patient. - No further neurosurgery follow up was recommended. - Will refer patient to Dr. Aguiar for follow up. Acute kidney injury - possibly prerenal secondary secondary to EtOH use, and crack cocaine - Creatinine 1.76 ==> 1.32 - IV fluid hydration - Monitor BMP - Avoid nephrotoxins HTN - hold off on home medication Norvasc. - Monitor BP trend. Will keep BP < 160/90. - If necessary, we will start Amlodipine 5mg Qday. Tobacco use EtOH - [facility] protocol Illicit drug use crack cocaine - Counselled on 03/15/2016 and again on the day of discharge 03/17/2016. Full code. SCDs. Discharge patient to home Condition on discharge: Improved Heart healthy Diet as tolerated Ad Juanita activity Rx written: - Folic acid, thiamine and Keprra 500mg PO BID. Follow-up with primary care physician within one week and Neurology within two weeks. Coy Galeas DO Mar 17, 2016 09:26
[2016-03-17] MEDS: SODIUM CHLOR 0.9% 1000 ML INJ 1,000 ML IV SCH (10:00)
[2016-03-17] MEDS ORDERED: FOLI1TAB4 PO (10:40)
[2016-03-17] MEDS ORDERED: LEVE500 PO (10:40)
[2016-03-17] MEDS ORDERED: THIA100T PO (10:40)
[2016-03-17 11:15] VITALS: BP 145/90; PULSE 72; RESP 18; TEMP 97.5; O2SAT 95
== END 2016-03-17 13:20 | disposition home or self-care (01) | DRG 100 ==
LOC: NEPA 15:09 → NEDA 16:51 → NEPGCP 22:13
PROVIDERS: ADMIT Hospitalist; ATTEND Hospitalist
DX: R56.9 Unspecified convulsions (principal); G93.6 Cerebral edema; D32.0 Benign neoplasm of cerebral meninges; N17.9 Acute kidney failure, unspecified; I10 Essential (primary) hypertension; F17.210 Nicotine dependence, cigarettes, uncomplicated; F14.10 Cocaine abuse, uncomplicated; F10.20 Alcohol dependence, uncomplicated; R32 Unspecified urinary incontinence; T40.5X1A Poisoning by cocaine, accidental (unintentional), initial encounter; T51.0X1A Toxic effect of ethanol, accidental (unintentional), initial encounter; Y92.9 Unspecified place or not applicable
CPT/HCPCS: 70450; 70553; 80048; 80307; 80320; 85025; 90471; 90714; 93005; 95819; 96372; A9579; J1100; J1953; J3411; J7030